=== PATIENT | female | born 1945 | race Caucasian/White ===

== ENCOUNTER 2023-11-26 17:09 | Emergency (ER) | payer MEDICARE, SELFPAY ==
[2023-11-26] VITALS (11 sets, daily range): BP systolic 160–209; BP diastolic 74–139; PULSE 63–78; RESP 18–34; TEMP 36.5; O2SAT 95–97; BMI 28.3
--- NOTE | 2023-11-26 17:26 | DI.RAD.S_ITS ---
PROCEDURE: XR HAND RT MIN 3V INDICATIONS: fall/pain TECHNIQUE: 3 views of the hand(s) acquired. COMPARISON: [facility], CR, XR WRIST RT MIN 3V, 11/26/2023, 17:32. FINDINGS: Bones: Fracture of the distal radius. There is intra-articular extension and mild displacement. Fracture of the ulnar styloid. No significant displacement. No dislocations. Carpal bones are normally aligned. No suspicious bony lesions. Soft tissues: No suspicious soft tissue calcifications. IMPRESSION: Fractures of the distal radius and ulnar styloid. Dictated by: Dash Pires M.D. on 11/26/2023 at 18:53 Approved by: Dash Pires M.D. on 11/26/2023 at 18:55
--- NOTE | 2023-11-26 17:26 | DI.RAD.S_ITS ---
PROCEDURE: XR WRIST RT MIN 3V INDICATIONS: fall/pain TECHNIQUE: 4 views of the wrist were acquired. COMPARISON: [facility], , XR HAND RT MIN 3V, 11/26/2023, 17:32. FINDINGS: Bones: Fracture of the distal radius. Mild displacement. Intra-articular extension. Fracture of the ulnar styloid. No significant displacement. No dislocations. No suspicious bony lesions. Mild degenerative changes at the 1st CMC joint. Soft tissues: No suspicious soft tissue calcifications. IMPRESSION: Fracture of the distal radius. Fracture of the ulnar styloid. Dictated by: Dash Pires M.D. on 11/26/2023 at 18:55 Approved by: Dash Pires M.D. on 11/26/2023 at 18:56
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
[2023-11-26] MEDS: HYDROMORPHONE 0.5 MG INJ IV (23:31)
[2023-11-27] VITALS: BP 152/67; PULSE 65; RESP 25; O2SAT 95
[2023-11-27] MEDS: TRAMADOL 50 MG PREPACK 1 BOTTLE MISC (00:09)
[2023-11-27] MEDS: ONDANSETRON 4 MG ODT PREPACK 1 BOTTLE MISC (00:10)
--- NOTE | 2023-11-27 00:21 | PC.NURSE ---
Fiberglass reverse sugar tong placed on right arm. 28 inches of 3 inch ortho-glass placed after cast padding. Wrapped with 2 inch and 4 inch aubrie wrap. CMS intact. Pt given instructions on care and use. Sling applied to right arm.
== END 2023-11-27 00:25 | disposition home or self-care (01) ==
PROVIDERS: Emergency Provider Emergency Medicine
DX: S52.501A Unspecified fracture of the lower end of right radius, initial encounter for closed fracture (principal); S52.601A Unspecified fracture of lower end of right ulna, initial encounter for closed fracture; W01.0XXA Fall on same level from slipping, tripping and stumbling without subsequent striking against object, initial encounter
CPT/HCPCS: 29125; 73110; 73130; 96374; 99284; J1170